=== PATIENT | female | born 1950 | race Caucasian/White ===

== ENCOUNTER 2021-12-04 03:48 | Inpatient (IN) | payer OTHER ==
--- OUTSIDE RECORDS SUMMARY | 2021-12-04 03:51 | XMS REPORT | Continuity of Care Document ---
:1950 Author Organization [facility] t Address [address] [place] [address] Care Team Providers Name Role Phone ARISTEO WOODARD Attending Clinician Unavailable Payers Payer Name Policy Type Policy Number Effective Date Expiration Date S ource MEDICARE PART A [id number] 2016 \T\ B 00:00:00 [employer] PPO I [id number] 2013 00:00:00 Problems This patient has no known problems. Allergies, Adverse Reactions, Alerts Allergy Allergy Status Severity Reaction(s) Onset Inactive Treating Comm ents Source Name Type Date Date Clinician codeine DA Active SV 2018-04 [facility] 05-06 [place] 00:00: d [address] [place] [address] CODEINE DRUG Active [facility]I 12-16 ity of 00:00: [address] Medications This patient has no known medications. Procedures This patient has no known procedures. Encounters Start End Encounter Admission Attending Care Care Encounter Source Date/Time Date/Time Type Type Clinicians Facility Department ID 2020-06-29 2020-06-29 Outpatient [facility] [id number] [facility] 14:50[facility]00 [facility]50[id number] 2020-06-29 Outpatient Keyon WOODARD [facility] [id number] [facility] 14:50:00 14:50:00 ARISTEO [facility] 2020-06-08 2020-06-08 Outpatient Keyon WOODARD [facility] [id number] Univers 13:00:00 13:00:[address] [facility] Results Test Description Test Time Test Comments Results Result Comments Source BASIC METABOLIC PANEL 2019-03-12 07:56:00 Test Item Value Reference Range Interpretation Comme nts SODIUM (test code = NA) 141 mmol/L 134-147 N POTASSIUM (test code = K) 3.8 mmol/L 3.4-5.0 N CHLORIDE (test code = CL) 110 mmol/L 100-108 H CARBON DIOXIDE (test code = CO2) 25 mmol/L 21-32 N ANION GAP (test code = GAP) 6.0 GAP calc 4.0-15.0 N GLUCOSE (test code = GLU) 95 MG/DL 70-110 N BLOOD UREA NITROGEN (test code = BUN) 15 MG/DL 7-18 N GLOMERULAR FILTRATION RATE (test code = GFR) >=60 max estimate estG FR >60 CREATININE (test code = CREAT) 0.7 MG/DL 0.6-1.0 N CALCIUM (test code = CA) 7.9 MG/DL 8.5-10.1 L CBC W/AUTO [id number] 07:47:00 Test Item Value Reference Range Interpretation Comments WHITE BLOOD CELL (test code = 7.3 K/mm3 3.5-11.0 N WBC) RED BLOOD CELL (test code = RBC) 3.65 M/mm3 4.70-6.10 L HEMOGLOBIN (test code = HGB) 9.8 G/DL 10.4-14.9 L HEMATOCRIT (test code = HCT) 30.5 % 31.5-44.1 L MEAN CELL VOLUME (test code = 83.6 Fl 84.5-98.6 L MCV) MEAN CELL HGB (test code = MCH) 26.8 pg 27.0-34.2 L MEAN CELL HGB CONCETRATION (test 32.1 G/DL 31.5-34.0 N code = MCHC) RED CELL DISTRIBUTION WIDTH (test 17.4 SD 11.5-14.5 H code = RDW) PLATELET COUNT (test code = PLT) 208.0 K/mm3 150-450 N MEAN PLATELET VOLUME (test code = 11.40 fL 7.0-10.5 H MPV) NEUTROPHIL % (test code = NT%) 66.0 % 40-76 N LYMPHOCYTE % (test code = LY%) 21.0 % 20.5-51.1 N MONOCYTE % (test code = MO%) 12.4 % 1.7-9.3 H EOSINOPHIL % (test code = EO%) 0.3 % 0.0-6.0 N BASOPHIL % (test code = BA%) 0.3 % 0.0-2.0 N NEUTROPHIL # (test code = NT#) 4.84 K/mm3 1.8-7.6 N LYMPHOCYTE # (test code = LY#) 1.5 K/mm3 0.6-3.2 N MONOCYTE # (test code = MO#) 0.9 K/mm3 0.3-1.1 N EOSINOPHIL # (test code = EO#) 0.0 K/mm3 0.0-0.4 N BASOPHIL # (test code = BA#) 0.0 K/mm3 0.0-0.1 N MANUAL DIFF REQUIRED (test code = NO DIFF/SCN CRITERIA MDIFF) - XR FLUOROSCOPY 0-60 [id number] 15:24:00 Name: TONI LI formerly [facility] : 1950 Age/S: 68 / F [id number] [facility] Council Unit #: [id number]: [place] [address] Phys: Bboby Yates MD Acct: [id number] Dis Date: Status: ADM INPHONE #: [phone] Exam Date: 03/11/2019 1230 FAX #: Reason: RIGHT FOOT TRIPLE ARTHRODESIS EXAMS:CPT: [id number] XR FLUOROSCOPY 0-60 MIN 18182 Fluoro Time: 112 SEC DAP (Gy m2): Air Kerma (mGy): EXAMINATION: - XR FLUOROSCOPY 0-60 MIN. LOCATION: S 17. HISTORY: RIGHT FOOT TRIPLE ARTHRODESIS. TECHNIQUE: Intraoperative fluoroscopy was utilized during surgery. Total reference air kerma was 4.22 mGy. FINDINGS/ IMPRESSION: Intraoperative fluoroscopy was utilized during right foot surgery. Please refer to operative report for detail. at [phone] Reported and signed by: Dhaval Goldstein M.D. CC: Bobby Yates MD; Fransico Vang MD PAGE 1 Signed Report Name: TONI LI formerly [facility] : 1950 Age/S: 68 / F [address] [address] Unit #: [id number] Loc: [place] [address] Phys: Bobby Yates MD Acct: [id number] Dis Date: Status: ADM IN PHONE #: [phone] Exam Date: 03/11/2019 1230 FAX #: Reason: RIGHT FOOT TRIPLE ARTHRODESIS EXAMS: CPT: [id number] XR FLUOROSCOPY 0-60 MIN 12626 Fluoro Time: 112 SEC DAP (Gy m2): Air Kerma (mGy): <Continued> Technologist: Melly Landon, RT(R) Trnscb Date/Time: 03/11/2019 (152) [email or web address] Orig Print D/T: S: 03/11/2019 ([id number]) PAGE 2 Signed ReportBASIC METABOLIC PANEL 2019-03-07 09:10:00 Test Item Value Reference Range Interpretation Comments SODIUM (test code = NA) 140 mmol/L 134-147 N POTASSIUM (test code = K) 3.8 mmol/L 3.4-5.0 N CHLORIDE (test code = CL) 108 mmol/L 100-108 N CARBON DIOXIDE (test code = CO2) 28 mmol/L 21-32 N ANION GAP (test code = GAP) 4.0 GAP calc 4.0-15.0 N GLUCOSE (test code = GLU) 95 MG/DL 70-110 N BLOOD UREA NITROGEN (test code = 23 MG/DL 7-18 H BUN) GLOMERULAR FILTRATION RATE (test 59 estGFR >60 L code = GFR) CREATININE (test code = CREAT) 1.0 MG/DL 0.6-1.0 N CALCIUM (test code = CA) 9.0 MG/DL 8.5-10.1 N VITAMIN D [id number] 09:10:00 Test Item Value Reference Range Interpretation Comments VITAMIN D 56.1 ng/mL 30.0-100.0 Vitamin D defic iency has 25-HYDROXY (test been define d by the code = VITD25) [facility] edicine and an Endocrine So ciety practice guidel ine as alevel of serum 25-OH vitamin D less than 20 ng/mL (1,2).The Endocrine Society went on to further define vitamin Dinsufficiency as a level between 21 and 29 ng/mL (2).1. IOM (Ins titute of Medicine). 2010 . Dietary reference intak es for calcium and D. [place]: [facility] [employer] .2. Reynold MF, Jennie HOPKINS, Javier corona [place], et al. Evaluation, treatment, and prevention of vitamin D de ficiency: an Endocrine So [facility] health care clinical practi ce guideline. JCEM . 2010; 96(7):1911-30.P erformed At: [facility] [id number] [place], [place] [id number] Gino Young MD Ph:[phone] BASIC METABOLIC [id number] 13:56:00 Test Item Value Reference Range Interpretation Comments SODIUM (test code = NA) 140 mmol/L 134-147 N POTASSIUM (test code = K) 3.8 mmol/L 3.4-5.0 N CHLORIDE (test code = CL) 108 mmol/L 100-108 N CARBON DIOXIDE (test code = CO2) 28 mmol/L 21-32 N ANION GAP (test code = GAP) 4.0 GAP calc 4.0-15.0 N GLUCOSE (test code = GLU) 95 MG/DL 70-110 N BLOOD UREA NITROGEN (test code = 23 MG/DL 7-18 H BUN) GLOMERULAR FILTRATION RATE (test 59 estGFR >60 L code = GFR) CREATININE (test code = CREAT) 1.0 MG/DL 0.6-1.0 N CALCIUM (test code = CA) 9.0 MG/DL 8.5-10.1 N VITAMIN D [id number] 13:56:00 Test Item Value Reference Range Interpretation Comments VITAMIN D 25-HYDROXY (test code = VITD25) BASIC METABOLIC [id number] 13:51:00 Test Item Value Reference Range Interpretation Comments SODIUM (test code = NA) 140 mmol/L 134-147 N POTASSIUM (test code = K) 3.8 mmol/L 3.4-5.0 N CHLORIDE (test code = CL) 108 mmol/L 100-108 N CARBON DIOXIDE (test code = CO2) 28 mmol/L 21-32 N ANION GAP (test code = GAP) 4.0 GAP calc 4.0-15.0 N GLUCOSE (test code = GLU) 95 MG/DL 70-110 N BLOOD UREA NITROGEN (test code = 23 MG/DL 7-18 H BUN) GLOMERULAR FILTRATION RATE (test estGFR >60 code = GFR) CREATININE (test code = CREAT) MG/DL 0.6-1.0 CALCIUM (test code = CA) 9.0 MG/DL 8.5-10.1 N VITAMIN D [id number] 13:51:00 Test Item Value Reference Range Interpretation Comments VITAMIN D 25-HYDROXY (test code = VITD25) CBC W/AUTO [id number] 13:42:00 Test Item Value Reference Range Interpretation Comments WHITE BLOOD CELL (test code = 5.4 K/mm3 3.5-11.0 N WBC) RED BLOOD CELL (test code = RBC) 4.63 M/mm3 4.70-6.10 L HEMOGLOBIN (test code = HGB) 12.1 G/DL 10.4-14.9 N HEMATOCRIT (test code = HCT) 39.2 % 31.5-44.1 N MEAN CELL VOLUME (test code = 84.7 Fl 84.5-98.6 N MCV) MEAN CELL HGB (test code = MCH) 26.1 pg 27.0-34.2 L MEAN CELL HGB CONCETRATION (test 30.9 G/DL 31.5-34.0 L code = MCHC) RED CELL DISTRIBUTION WIDTH (test 17.6 SD 11.5-14.5 H code = RDW) PLATELET COUNT (test code = PLT) 235.0 K/mm3 150-450 N MEAN PLATELET VOLUME (test code = 10.90 fL 7.0-10.5 H MPV) NEUTROPHIL % (test code = NT%) 56.2 % 40-76 N LYMPHOCYTE % (test code = LY%) 31.0 % 20.5-51.1 N MONOCYTE % (test code = MO%) 7.8 % 1.7-9.3 N EOSINOPHIL % (test code = EO%) 4.1 % 0.0-6.0 N BASOPHIL % (test code = BA%) 0.9 % 0.0-2.0 N NEUTROPHIL # (test code = NT#) 3.01 K/mm3 1.8-7.6 N LYMPHOCYTE # (test code = LY#) 1.7 K/mm3 0.6-3.2 N MONOCYTE # (test code = MO#) 0.4 K/mm3 0.3-1.1 N EOSINOPHIL # (test code = EO#) 0.2 K/mm3 0.0-0.4 N BASOPHIL # (test code = BA#) 0.1 K/mm3 0.0-0.1 N MANUAL DIFF REQUIRED (test code = NO DIFF/SCN CRITERIA MDIFF)
[2021-12-04] MEDS ORDERED: PANTOPRAZOLE 40 MG INJ ONE ×2 (04:59→05:00)
[2021-12-04] MEDS ORDERED: NA CHLORIDE 0.9% 250 ML ONE (04:59)
[2021-12-04] MEDS ORDERED: NA CHLORIDE 0.9% 1,000 ML ONE (05:01)
[2021-12-04 05:32] LABS: Hematocrit 30.4 % (36.0-45.0); Lymphocytes % 13.6 % (15.3-44.8); MCV 86.7 fL (80-100); MPV 9.1 fL (7.6-11.3); RBC Red Blood Cell Count 3.51 M/uL (3.86-4.86)
[2021-12-04 05:35] LABS: Protime INR 1.02
[2021-12-04 05:45] LABS: SARS-CoV-2 Antigen Rapid Res Negative (Negative)
[2021-12-04 05:59] LABS: ALT/SGPT 26 U/L (12-78); Albumin 2.9 g/dL (3.4-5.0); Alkaline Phosphatase 72 U/L (45-117); BUN Blood Urea Nitrogen 47 mg/dL (7-18); Bicarbonate 25 mmol/L (21-32); Bilirubin Total 0.4 mg/dL (0.2-1.0); Glomerular Filtration Rate 80 ml/min (=/>90); Glucose Level 127 mg/dL (74-106); Potassium 4.8 mmol/L (3.5-5.1); Protein, Total 5.6 g/dL (6.4-8.2); Sodium Level 140 mmol/L (136-145); Troponin High Sensitivity 11.9 pg/mL (<58.9)
[2021-12-04 06:00] LABS: AST/SGOT 21 U/L (15-37); Bilirubin Direct < 0.1 mg/dL (0-0.2); Magnesium 2.1 mg/dL (1.8-2.4)
--- NOTE | 2021-12-04 06:45 | ER ---
Nurse's Notes [facility] Name: Suma Mosqueda Age: 71 yrs Sex: Female : 1950 Arrival Date: 12/04/2021 Time: 03:53 Bed 5 Private MD: Diagnosis: GI Bleed/ Gastrointestinal hemorrhage, unspecified-upper;Anemia, unspecified;Acute gastritis with bleeding Presentation: 12/04 03:58 Chief complaint: Patient states: "I've had about 5 bleeds since last night. I have a as6 bleeding ulcer" pt reports having dark bloody stools. Coronavirus screen: At this time, the client does not indicate any symptoms associated with coronavirus-19. Ebola Screen: No symptoms or risks identified at this time. Initial Sepsis Screen: Does the patient meet any 2 criteria? No. Patient's initial sepsis screen is negative. Does the patient have a suspected source of infection? No. Patient's initial sepsis screen is negative. Risk Assessment: Do you want to hurt yourself or someone else? Patient reports no desire to harm self or others. Onset of symptoms was December 03, 2021. 03:58 Method Of Arrival: Wheelchair as6 03:58 Acuity: NITISH 3 as6 Historical: - Allergies: 04:09 Codeine; as6 - Home Meds: 04:05 amlodipine 10 mg tab 1 tab once daily [Active]; losartan 100 mg oral tab 1 tab once as6 daily [Active]; Nelson Thyroid 165 Oral once daily [Active]; pantoprazole 40 mg oral grps 1 packet once daily [Active]; - PMHx: 04:05 Hypothyroidism; Hypertensive disorder; as6 - PSHx: 04:05 Tonsillectomy; gastric bypass; knee; Ligation of fallopian tube; foot; as6 - Immunization history:: Client reports receiving the 2nd dose of the Covid vaccine, [facility]. - Social history:: Smoking status: Patient denies any tobacco usage or history of. Screenin:09 Abuse screen: Denies threats or abuse. Denies injuries from another. Nutritional as6 screening: No deficits noted. Tuberculosis screening: No symptoms or risk factors identified. Fall Risk None identified. Assessment: 04:09 General: Appears in no apparent distress. Behavior is calm, cooperative. Pain: Denies as6 pain. Neuro: Level of Consciousness is awake, alert, obeys commands, Oriented to person, place, time, situation. Respiratory: Respiratory effort is even, unlabored. GI: Reports bloody stool. 06:45 General: IV to right AC infiltrated in CT scan. IV discontinued . as6 07:29 Reassessment: Patient and/or family updated on plan of care and expected duration. Pain bm7 level reassessed. Patient is alert, oriented x 3, equal unlabored respirations, skin warm/dry/pink. Patient states feeling better. Patient states symptoms have improved. 08:07 Reassessment: Dr. Moses at bedside to reassess. bm7 08:34 Reassessment: Patient and/or family updated on plan of care and expected duration. Pain bm7 level reassessed. Patient is alert, oriented x 3, equal unlabored respirations, skin warm/dry/pink. Patient denies pain at this time. Vital Signs: 03:58 BP 118 / 66; Pulse 66; Resp 18 S; Temp 98.1(O); Pulse Ox 100% on R/A; Weight 81.65 kg as6 (R); Height 5 ft. 6 in. (167.64 cm) (R); Pain 0/10; 05:22 BP 121 / 60; Pulse 61; Resp 13 S; Pulse Ox 100% on R/A; as6 06:25 BP 96 / 44; Pulse 59; Resp 15 S; Pulse Ox 100% on R/A; as6 07:28 BP 110 / 57; Pulse 64; Resp 18; Pulse Ox 100% on R/A; Pain 0/10; bm7 08:34 BP 106 / 56; Pulse 66; Resp 16; Pulse Ox 100% on R/A; Pain 0/10; bm7 03:58 Body Mass Index 29.05 (81.65 kg, 167.64 cm) as6 ED Course: 03:53 Patient arrived in ED. bp1 03:57 Diego Abdalla, JASON is Primary Nurse. as6 04:05 Triage completed. as6 04:08 Arm band placed on. as6 04:09 Jonel Candelario MD is Attending Physician. mh7 04:09 Placed in gown. Bed in low position. Call light in reach. Side rails up X 1. Adult w/ as6 patient. Pulse ox on. NIBP on. Warm blanket given. 05:22 Inserted saline lock: 20 gauge in right antecubital area, using aseptic technique. as6 Blood collected. 05:22 PT-INR Sent. as6 05:22 Magnesium Sent. as6 05:22 LFT's Sent. as6 05:22 CBC with Diff Sent. as6 05:22 Basic Metabolic Panel Sent. as6 05:23 Type And Screen Sent. as6 05:23 SARS RAPID Sent. as6 05:44 XRAY Chest (1 view) In Process Unspecified. EDMS 06:35 Attending Physician role handed off by Jonel Candelario MD denisse 06:35 Magnus Moses MD is Attending Physician. denisse 06:42 Shalom Metzger MD is Hospitalizing Provider. denisse 06:44 Inserted saline lock: 20 gauge in left antecubital area, using aseptic technique. as6 06:56 CT Abd/Pelvis - IV Contrast Only In Process Unspecified. EDMS 07:16 Assisted to bedside commode. bm7 07:28 No apparent distress. Resting quietly. transfer approval from receiving facility. bm7 07:28 No provider procedures requiring assistance completed. Patient maintains SpO2 bm7 saturation greater than 95% on room air. 09:01 Report given to JASON Dennis. bm7 09:01 Patient admitted, IV remains in place. bm7 Administered Medications: 05:23 Drug: ProTONIX (pantoprazole) 80 mg Route: IVP; Site: right antecubital; as6 07:28 Follow up: Response: No adverse reaction bm7 05:23 Drug: ProTONIX (pantoprazole) 8 mg/hr Route: IV; Rate: 25 ml/hr; Site: right as6 antecubital; 09:02 Follow up: IV Status: Infusion continued upon admission; Infusion continued upon bm7 transfer 05:23 Drug: NS 0.9% 1000 ml Route: IV; Rate: 1000 ml; Site: right antecubital; as6 09:02 Follow up: IV Status: Completed infusion; IV Intake: 1000ml bm7 Medication: 07:28 VIS not applicable for this client. bm7 Intake: 09:02 IV: 1000ml; Total: 1000ml. bm7 Output: 07:32 Urine: 400ml (Voided); Total: 400ml. bm7 Outcome: 06:45 Decision to Hospitalize by Provider. denisse 09:01 Admitted to OR accompanied by nurse, family with patient, via stretcher, with chart, bm7 Report called to JASON Dennis 09:01 Condition: improved 09:01 Discharge instructions given to patient, Instructed on the need for transfer, Demonstrated understanding of instructions. 09:03 Patient left the ED. lou7 Signatures: Dispatcher [employer] EDMS Magnus Moses MD MD cha Paniauga, Brittany bp1 Holmes, Maurice, MD MD [facility] Lauren Saucedo, RN RN bm7 Diego Abdalla, JASON RN as6
--- NOTE | 2021-12-04 06:45 | EDPHYS ---
Physician Documentation [facility] Name: Suma Mosqueda Age: 71 yrs Sex: Female : 1950 Arrival Date: 12/04/2021 Time: 03:53 Bed 5 Private MD: MARY Physician Magnus Moses HPI: 12/04 04:50 This 71 yrs old Female presents to ER via Wheelchair with complaints of Shoulder Pain, mh7 Bleeding Ulcer. 04:50 The patient presents to the emergency department with rectal bleeding, a moderate mh7 amount, dark red blood with bowel movement with multiple such episodes, 5 times since symptom onset. Onset: The symptoms/episode began/occurred yesterday. Abdominal pain: none is appreciated. Modifying factors: The symptoms are alleviated by nothing, the symptoms are aggravated by nothing. Associated signs and symptoms: Pertinent positives: left shoulder pain, Pertinent negatives: anorexia, chest pain, constipation, diarrhea, dizziness at rest, dizziness when standing, fever, shortness of breath, syncope, near-syncope, vomiting. Severity of symptoms: At their worst the symptoms were moderate last night, in the emergency department the symptoms have improved moderately. The patient has experienced similar episodes in the past, several times. States that she stopped taking her Pantoprazole about 10 days ago.. Historical: - Allergies: 04:09 Codeine; as6 - Home Meds: 04:05 amlodipine 10 mg tab 1 tab once daily [Active]; losartan 100 mg oral tab 1 tab once as6 daily [Active]; [place] Thyroid 165 Oral once daily [Active]; pantoprazole 40 mg oral grps 1 packet once daily [Active]; - PMHx: 04:05 Hypothyroidism; Hypertensive disorder; as6 - PSHx: 04:05 Tonsillectomy; gastric bypass; knee; Ligation of fallopian tube; foot; as6 - Immunization history:: Client reports receiving the 2nd dose of the Covid vaccine, pfizer. - Social history:: Smoking status: Patient denies any tobacco usage or history of. ROS: 04:50 Constitutional: Negative for fever, chills, and weight loss, Eyes: Negative for injury, mh7 pain, redness, and discharge, ENT: Negative for injury, pain, and discharge, Neck: Negative for injury, pain, and swelling, Cardiovascular: Negative for chest pain, palpitations, and edema, Respiratory: Negative for shortness of breath, cough, wheezing, and pleuritic chest pain, Abdomen/GI: Negative for abdominal pain, nausea, vomiting, diarrhea, and constipation, Back: Negative for injury and pain, : Negative for injury, bleeding, discharge, and swelling, Skin: Negative for injury, rash, and discoloration, Neuro: Negative for headache, weakness, numbness, tingling, and seizure, Psych: Negative for depression, anxiety, suicide ideation, homicidal ideation, and hallucinations, Allergy/Immunology: Negative for hives, rash, and allergies, Endocrine: Negative for neck swelling, polydipsia, polyuria, polyphagia, and marked weight changes, Hematologic/Lymphatic: Negative for swollen nodes, abnormal bleeding, and unusual bruising. Exam: 04:50 Constitutional: This is a well developed, well nourished patient who is awake, alert, mh7 and in no acute distress. Head/Face: Normocephalic, atraumatic. Eyes: Pupils equal round and reactive to light, extra-ocular motions intact. Lids and lashes normal. Conjunctiva and sclera are non-icteric and not injected. Cornea within normal limits. Periorbital areas with no swelling, redness, or edema. Neck: Trachea midline, no thyromegaly or masses palpated, and no cervical lymphadenopathy. Supple, full range of motion without nuchal rigidity, or vertebral point tenderness. No Meningismus. Chest/axilla: Normal chest wall appearance and motion. Nontender with no deformity. No lesions are appreciated. Cardiovascular: Regular rate and rhythm with a normal S1 and S2. No gallops, murmurs, or rubs. Normal PMI, no JVD. No pulse deficits. Respiratory: Lungs have equal breath sounds bilaterally, clear to auscultation and percussion. No rales, rhonchi or wheezes noted. No increased work of breathing, no retractions or nasal flaring. Abdomen/GI: Soft, non-tender, with normal bowel sounds. No distension or tympany. No guarding or rebound. No evidence of tenderness throughout. 04:50 Back: No spinal tenderness. No costovertebral tenderness. Full range of motion. Skin: Warm, dry with normal turgor. Normal color with no rashes, no lesions, and no evidence of cellulitis. MS/ Extremity: Pulses equal, no cyanosis. Neurovascular intact. Full, normal range of motion. Neuro: Awake and alert, GCS 15, oriented to person, place, time, and situation. Cranial nerves II-XII grossly intact. Motor strength 5/5 in all extremities. Sensory grossly intact. Cerebellar exam normal. Normal gait. Psych: Awake, alert, with orientation to person, place and time. Behavior, mood, and affect are within normal limits. 04:50 Abdomen/GI: Rectal exam: rectal tone normal, Stool: guaiac positive, maroon, hemorrhoid(s), are not appreciated, mass, is not appreciated, swelling, is not appreciated, tenderness, is not appreciated, fecal impaction, is not appreciated, the exam is chaperoned by the nurse. 06:36 Abdomen/GI: Rectal exam: Stool: denisse 07:25 ECG was reviewed by the Attending Physician. [facility] Vital Signs: 03:58 BP 118 / 66; Pulse 66; Resp 18 S; Temp 98.1(O); Pulse Ox 100% on R/A; Weight 81.65 kg as6 (R); Height 5 ft. 6 in. (167.64 cm) (R); Pain 0/10; 05:22 BP 121 / 60; Pulse 61; Resp 13 S; Pulse Ox 100% on R/A; as6 06:25 BP 96 / 44; Pulse 59; Resp 15 S; Pulse Ox 100% on R/A; as6 07:28 BP 110 / 57; Pulse 64; Resp 18; Pulse Ox 100% on R/A; Pain 0/10; bm7 08:34 BP 106 / 56; Pulse 66; Resp 16; Pulse Ox 100% on R/A; Pain 0/10; bm7 03:58 Body Mass Index 29.05 (81.65 kg, 167.64 cm) as6 MDM: 06:16 Transition of care: After a detail discussion of the patient's case, care is 7 transferred to Magnus Moses MD. 06:35 Patient medically screened. [facility] 07:23 Differential diagnosis: gastritis, diverticulitis, hemorrhagic shock. Data reviewed: [facility] vital signs, nurses notes, lab test result(s), EKG, radiologic studies, CT scan, plain films. Data interpreted: quality assurance monitor: rate is 59 beats/min, rhythm is regular, Pulse oximetry: on room air is 100 %. Test interpretation: by ED physician or midlevel provider: ECG, plain radiologic studies. Counseling: I had a detailed discussion with the patient and/or guardian regarding: the historical points, exam findings, and any diagnostic results supporting the discharge/admit diagnosis, lab results, radiology results, the need for further work-up and treatment in the hospital. 12/04 04:47 Order name: Basic Metabolic Panel; Complete Time: 06:11 7 12/04 04:47 Order name: CBC with Diff; Complete Time: 05:35 7 12/04 04:47 Order name: LFT's; Complete Time: 06:11 7 12/04 04:47 Order name: Magnesium; Complete Time: 06:11 7 12/04 04:47 Order name: PT-INR; Complete Time: 05:37 7 12/04 04:47 Order name: Troponin HS; Complete Time: 06:11 7 12/04 04:48 Order name: Type And Screen; Complete Time: 06:11 7 12/04 04:49 Order name: SARS RAPID; Complete Time: 05:47 7 12/04 07:28 Order name: Urine Dipstick-Ancillary EDMS 12/04 08:11 Order name: Urinalysis EDMS 12/04 08:11 Order name: Basic Metabolic Panel EDMS 12/04 08:11 Order name: Basic Metabolic Panel EDMS 12/04 08:11 Order name: CBC with Automated Diff EDMS 12/04 08:11 Order name: CBC with Automated Diff EDMS 12/04 04:47 Order name: XRAY Chest (1 view) [facility] 12/04 04:47 Order name: EKG; Complete Time: 04:53 7 12/04 04:47 Order name: Cardiac monitoring; Complete Time: 05:23 7 12/04 04:47 Order name: EKG - Nurse/Tech; Complete Time: 05:23 7 12/04 04:47 Order name: IV Saline Lock; Complete Time: 05:23 7 12/04 04:47 Order name: Labs collected and sent; Complete Time: 05:23 7 12/04 04:47 Order name: O2 Per Protocol; Complete Time: 05:23 7 12/04 04:47 Order name: O2 Sat Monitoring; Complete Time: 05:22 7 12/04 06:12 Order name: CT Abd/Pelvis - IV Contrast Only [facility] 12/04 08:11 Order name: Protime (+INR) [facility] 12/04 08:11 Order name: Protime (+INR) [facility] 12/04 08:13 Order name: Clear Liquid; Complete Time: 08:35 [facility] 12/04 06:11 Order name: Urine Dipstick-Ancillary (obtain specimen); Complete Time: 07:16 [facility] 12/04 06:39 Order name: IV Saline Lock - Large Bore; Complete Time: 06:44 denisse EC:25 Rate is 56 beats/min. Rhythm is regular. QRS [place] is Normal. [place] interval is normal. QRS denisse interval is normal. QT interval is normal. No Q waves. T waves are Normal. No ST changes noted. Clinical impression: NSR w/ Non-specific ST/T Changes, LVH, and No evidence of ischemia. Interpreted by me. Reviewed by me. Administered Medications: 05:23 Drug: ProTONIX (pantoprazole) 80 mg Route: IVP; Site: right antecubital; as6 07:28 Follow up: Response: No adverse reaction [facility] 05:23 Drug: ProTONIX (pantoprazole) 8 mg/hr Route: IV; Rate: 25 ml/hr; Site: right as6 antecubital; 09:02 Follow up: IV Status: Infusion continued upon admission; Infusion continued upon [facility] transfer 05:23 Drug: NS 0.9% 1000 ml Route: IV; Rate: 1000 ml; Site: right antecubital; as6 09:02 Follow up: IV Status: Completed infusion; IV Intake: 1000ml 7 Disposition Summary: 12/04/21 06:45 Hospitalization Ordered Hospitalization Status: Inpatient Admission denisse Provider: Shalom Metzger cha Location: Intensive Care Unit denisse Condition: Fair denisse Problem: new denisse Symptoms: have improved denisse Bed/Room Type: Standard denisse Room Assignment: denisse Diagnosis - GI Bleed/ Gastrointestinal hemorrhage, unspecified - upper denisse - Anemia, unspecified denisse - Acute gastritis with bleeding denisse Forms: - Medication Reconciliation Form denisse - SBAR form denisse Signatures: Dispatcher [employer] EDMagnus Smith MD MD cha Holmes, Maurice, MD MD 7 Diego Abdalla RN RN as6 Hailey Farooq PA PA sb3 Lauren Saucedo RN bm7 Corrections: (The following items were deleted from the chart) 08:11 08:11 [facility] ordered. EDMS EDMS
--- NOTE | 2021-12-04 07:26 | RAD REPORT ---
EXAM DESCRIPTION: CT - Abdomen Pelvis W Contrast - 12/04/2021 6:54 am CLINICAL HISTORY: Abdominal pain / GI bleed COMPARISON: none. TECHNIQUE: Computed axial tomography of the abdomen pelvis was obtained. 100 cc Isovue-300 was admin istered intravenously. Oral contrast was not requested which limits evaluation of bowel and appendix All CT scans are performed using dose optimization technique as appropriate and may include automated exposure control or mA/KV adjustment according to patient size. FINDINGS: The liver, spleen, and pancreas appear unremarkable. Small right renal cyst. 4 centimeter low-density structure left renal pelvis. Small left renal cyst is present. 17 millimeter left adrenal mass. Gastric bypass. Gastric wall appears thickened. There is no evidence of diverticulitis. Normal appendix. Uterine masses probably fibroids. Cholecystectomy. Prominent common bile duct IMPRESSION: Gastric wall appears thickened which be secondary to incomplete distention or inflammati on Gastric bypass Prominent common bile duct may be a normal finding in this patient status post cholecystectomy. Patho logy can also result in this appearance and should be correlated clinically with appropriate lab valu es. A 4 centimeter low-density structure left renal pelvis probably parapelvic cyst. Combination of extra renal pelvis and mild hydronephrosis is another consideration. 17 millimeter left adrenal mass could represent an adenoma or metastasis. MRI can often help distingu henry between the two
[2021-12-04 07:28] LABS: Urine Blood Trace-lysed (Negative); Urine Glucose Negative (Negative); Urine Protein Negative (Negative); Urine Specific Gravity 1.015 (1.005-1.030); Urine pH 5.5 (5.0-7.0)
[2021-12-04] MEDS ORDERED: ACETAMINOPHEN 500 MG TAB PO PRN (08:06)
[2021-12-04] MEDS ORDERED: ONDANSETRON 4 MG/2 ML VIAL IV PRN (08:06)
[2021-12-04] MEDS ORDERED: HYDROCODONE/APAP 5/325 MG TAB PO PRN (08:12)
[2021-12-04] MEDS ORDERED: SODIUM CHLORIDE 0.9% 10ML INJ IV PRN (08:13)
[2021-12-04] MEDS: PANTOPRAZOLE 40 MG INJ IVP SCH ×2 (09:00→20:46)
[2021-12-04] MEDS ORDERED: SIMETHICONE 40 MG/ 0.6 ML ONE (09:01)
[2021-12-04] MEDS ORDERED: Ringers Lactate 1,000 ML IV ONE (09:15)
[2021-12-04] MEDS ORDERED: LIDOCAINE 1% MPF 5 ML VIAL ONE (09:39)
[2021-12-04] MEDS ORDERED: propofoL 200 MG/20 ML VIAL IV ONE (09:39)
--- NOTE | 2021-12-04 09:57 | P.HP ---
Certification for Inpatient Patient admitted to: Inpatient With expected LOS: >2 Midnights Patient will require the following post-hospital care: None Practitioner: I am a practitioner with admitting privileges, knowledge of patient current condition, hospital course, and medical plan of care. Services: Services provided to patient in accordance with Admission requirements found in Title 42 Section 412.3 of the Code of Federal Regulations Patient History Date of Service: 12/04/21 Reason for admission: GI bleed History of Present Illness: Patient is a 71-year-old female with a past medical history significant for hypertension, hypothyroidism, fibromyalgia, anemia, GERD, gastric ulcers who presents with complaint of GI bleed yesterday. Patient reported multiple episodes of dark stools. She also complains of left shoulder pain as 4/10 and described as aching quality. Associated signs and symptoms of dizziness fatigue and weakness. Patient denies any other signs and symptoms. Symptoms are aggravated or relieved by nothing. Patient decided to present to the hospital due to worsening symptoms. Of note, patient reported that she has not been taking her Protonix in the last 10 days. Allergies codeine Adverse Reaction (Mild, Verified 04/18/15 17:56) Rash Home medications list reviewed: Yes Home Medications: Amlodipine [Norvasc*] 10 mg PO DAILY 04/18/15 Losartan Potassium 100 mg PO DAILY 04/18/15 Metoprolol Tartrate [Lopressor*] 50 mg PO DAILY 04/18/15 Pantoprazole Sodium 40 mg PO DAILY 12/04/21 Thyroid Tab [[place] Thyroid] 120 mg PO DAILY 12/04/21 Thyroid,Pork [[place] Thyroid] 45 mg PO DAILY 12/04/21 Turmeric/Turmeric Ext/Pepr Ext [[facility] Turmeric Curcumin 1,000 mg] 20,000 mg PO DAILY 12/04/21 - Past Medical/Surgical History Diabetic: No -: HTN -: Fibromyalgia -: N/V -: gastric bypass -: kristen -: carpal tunnel (bilat) -: knee replacements(bilat) -: tonsillectomy -: tubal - Family History Family History: Reviewed- Non-Contributory - Social History Smoking Status: Never smoker Alcohol use: No CD- Drugs: No Caffeine use: Yes Place of Residence: Home Review of Systems General: Weakness, Other (fatigue) Eyes: Unremarkable ENT: Unremarkable Respiratory: Unremarkable Cardiovascular: Unremarkable Gastrointestinal: Unremarkable Genitourinary: Unremarkable Musculoskeletal: Shoulder Pain Integumentary: Unremarkable Neurological: Unremarkable Physical Examination - Vital Signs Temperature: 98.1 F Blood Pressure: 121/60 Pulse: 61 Respirations: 13 - Physical Exam General: Alert, In no apparent distress, Oriented x3 HEENT: Atraumatic, Normocephalic, PERRLA Neck: Supple, 2+ carotid pulse no bruit, JVD not distended Respiratory: Clear to auscultation bilaterally, Normal air movement Cardiovascular: No edema, Normal pulses, Regular rate/rhythm, Normal S1 S2 Capillary refill: <2 Seconds Gastrointestinal: Normal bowel sounds Musculoskeletal: No clubbing, No swelling, No contractures, No erythema, No tenderness, No warmth Integumentary: No rashes, No breakdown, No tenderness/swelling, No erythema Neurological: Normal gait, Normal speech, Normal strength at 5/5 x4 extr Lymphatics: No axilla or inguinal lymphadenopathy - Studies Laboratory Data (last 24 hrs) 12/04/21 05:16: PT 11.2, INR 1.02 12/04/21 05:16: WBC 7.4, Hgb 10.5 L, Hct 30.4 L, Plt Count 173 12/04/21 05:16: Sodium 140, Potassium 4.8, BUN 47 H, Creatinine 0.79, Glucose 127 H, Magnesium 2.1, Total Bilirubin 0.4, AST 21, ALT 26, Alkaline Phosphatase 72 Assessment and Plan - Plan --Gastrointestinal bleeding. Gastroenterology consulted. Patient placed on Protonix. H&H stable. We will continue to monitor hemoglobin and transfuse if less than 7.0. --History of Gastric ulcers. Continue Protonix. -- Hypertension. Stable. Continue home medications. --GERD. Continue Protonix. --CKD 2. Stable. We will continue to monitor renal functions. --UTI POA. Patient placed on antibiotics. Urine cultures pending. --Fibromyalgia. We will manage pain with current pain medication regimen. --Placement. Continue home medication. -- Symptomatic anemia. H&H stable. We will continue to monitor hemoglobin and transfuse if less than 7.0. --Left shoulder pain. Patient currently denies any pain continue supportive care --DVT prophylaxis with SCDs. Discharge Plan: Home Plan to discharge in: 48 Hours - Advance Directives Does patient have a Living Will: No Does patient have a Durable POA for Healthcare: No - Code Status/Comfort Care Code Status Assessed: Yes Code Status: Full Code Physician Review: Patient Assessed, Agree with Above Assessment and Plan Critical Care: No
--- NOTE | 2021-12-04 10:36 | ENDO RPT ---
[address], [id number] EGD PROCEDURE REPORT EXAM DATE: 12/04/2021 PATIENT NAME: Suma Mosqueda MR#: [id number] BIRTHDATE: 1950 ATTENDING: Cecilio Wallace Dr STATUS: inpatient MILLER FIRST: Katie YATES and Shireen Escamilla CST INDICATIONS: The patient is a 71 yr old Female here for an EGD due to melenic bleeding, anemia, and control bleeding PROCEDURE PERFORMED: EGD with biopsy and EGD for control of bleeding and EGD with injection of Epinephrine MEDICATIONS: Per Anesthesia. TOPICAL ANESTHETIC: none CONSENT: The patient understands the risks and benefits of the procedure and understands that these risks include, but are not limited to: sedation, allergic reaction, infection, perforation and/or bleeding. Alternative means of evaluation and treatment include, among others: physical exam, x-rays, and/or surgical intervention. The patient elects to proceed with this endoscopic procedure. DESCRIPTION OF PROCEDURE: During intra-op preparation period all mechanical medical equipment was checked for proper function. Hand hygiene and appropriate measures for infection prevention was taken. Procedure, possible complications, and alternatives including but not limited to the possibility of bleeding, perforation, tear, infection, sepsis, need for surgery, need for blood transfusion, and anesthesia related complications were explained to the patient. After the risks, benefits and alternatives of the procedure were thoroughly explained, Informed consent was verified, confirmed and timeout was successfully executed by the treatment team. The patient was placed in the left lateral position. The patient was anesthetized with topical anesthesia. Through the anesthetized oropharyngeal area, the scope was passed without any difficulty. The [id number] ([id number]) endoscope was introduced through the mouth and advanced to the proximal jejunum. Retroflexion was not performed. The gastroscope was then slowly withdrawn and removed. A small hiatal hernia was found Anastomosis was noted in the fundus. Multiple ulcers were found in the fundus, s/p injection of 2 cc Epinephrine 1:10,000 with control of bleeding. Gastric biposy obtained and sent to pathology. Gastric bypass surgical changes noted. ADVERSE EVENTS: There were no complications. IMPRESSIONS: 1. Small hiatal hernia 2. Gastro-jejununal anastomosis in the fundus (history of gastric bypass surgery) 3. Multiple (2, larger one with minor bleeding after abrasion with endoscope) 9 control of bleeding 4. Gastric biopsy obtained 5. Gastric bypass surgical changes RECOMMENDATIONS: 1. await biopsy results 2. acid suppression therapy 3. check gastrin level REPEAT EXAM: Cecilio Wallace Dr eSigned: Cecilio Wallace Dr 12/04/2021 10:35 AM cc: Fransico Vang CPT CODES: ICD9 CODES: PATIENT NAME: Suma MosquedaSanta MR#: [id number]
[2021-12-04] MEDS ORDERED: EPINEPHRINE/PF 1 MG/ML AMP ONE (10:38)
[2021-12-04 10:58] VITALS: O2SAT 99
[2021-12-04 11:56] VITALS: BMI 29.0
--- NOTE | 2021-12-04 14:18 | CON ---
Date of Consultation: 12/04/2021 Reason For Consultation: Melena with anemia with hemoglobin of 10.5. History Of Present Illness: The patient is a 71-year-old white female with history of bleeding pepti c ulcer disease with melena approximately 5 years ago with ulcer found at the gastric bypass anastomo sis. The patient was told to stay on PPI therapy for life time. However, the patient decided to sto p PPI medicines prior 2 weeks ago to try some natural remedies and now has recurrent melena. The pat ient states that she had a gastric bypass surgery approximately 15 years ago and had EGD due to melen a approximately 5 years ago with ulcer found at the anastomosis. Currently, her hemoglobin is 10.5, hemodynamically stable in the emergency room. The patient denies any hematemesis, coffee-ground emes is, nausea, vomiting, abdominal pain, fevers, chills, night sweats, change in bowel habits, diarrhea, constipation, black stool, or hematochezia. Past Medical History: Significant for peptic ulcer disease and gastric bypass anastomosis sukumar bonner 5 years ago, was also seen and told to stay on Protonix chronically for the rest of her life; hyp ertension; fibromyalgia; recurrent nausea and vomiting; cholecystectomy; carpal tunnel surgery; knee replacements bilaterally; tonsillectomy; tubal ligation. Medications: Include Norvasc, losartan, Lopressor, , Feosol, pantoprazole. Allergies: CODEINE. Social History: She is , 4 children. No tobacco. No alcohol. Family History: Father of COVID-19. Mother of autoimmune liver disease. Sister of a utoimmune liver disease as well. Physical Examination: Vital Signs: The patient is 5 feet 6 inches, 180 pounds, BMI of 29.1 kg/m2. Temperature 98 degrees Fahrenheit, pulse 75, respirations 16, blood pressure 114/48, O2 of 100%. General: She is an elderly female, lying in bed, in no acute distress. HEENT: Normocephalic, atraumatic. Anicteric. Pupils equal, round, and reactive to light. Extraocu lar movements intact. Oropharynx clear. Throat clear. Neck: Supple. No masses. Respirations: Clear to auscultation bilaterally. Cardiac: Regular rate and rhythm. Gastrointestinal: Positive bowel sounds. Soft, nontender, nondistended. No hepatosplenomegaly. Extremities: No clubbing, cyanosis, or edema. Neuro: Alert and oriented x3. Grossly nonfocal. 5/5 motor strength to light touch. Laboratory Data: The patient has a white count of 7.4, hemoglobin 10.5, hematocrit 30.4, MCV of 87, platelet count of 173, polys of 82%, lymphocytes 14%, monocytes 4%. PT 11.2, INR of 1.02. The patie nt's sodium 140, potassium 4.8, chloride 111, bicarb 25, BUN 47, creatinine of 0.8, glucose 127, calc ium 8.9, magnesium 2.1, total bilirubin 0.4, direct bilirubin less than 0.1, AST of 21, ALT of 26, al kaline phosphatase 72. Troponin I of 11.9, normal. Total protein is 5.6, albumin 2.9, globulin 2.7. The patient's UA shows 1+ ketones, trace blood, and 1+ leukocyte esterase. Serology; COVID-19 test ing was negative. Imaging: CT abdomen and pelvis revealed distended gallbladder, 4 cm low-density s tructure in the pelvis, small renal cysts are present, 1.7 cm left renal mass, gastric bypass changes present, gastric wall appears thickened. Impression: 1.Gastrointestinal bleeding, melena of 2 days with anemia of hemoglobin 10.5, off Protonix medicine which she has been on chronically since EGD 5 years ago revealed bleeding peptic ulcer disease at gas tric bypass anastomosis. The patient was told to stay on medicines the rest of her life; however, sh e stopped 2 weeks ago to try a natural alternative. 2.History of gastric bypass, hypertension, and other as per above. Also history of bleeding peptic ulcer disease probably 5 years ago resolved with PPI therapy. Recommendations: 1.IV fluid resuscitation. 2.Agree with IV Protonix drip. 3.Serial H and H, and transfuse p.r.n. 4.EGD urgently. JULIETA/MARLON Voice ID: [id number] Report ID: [id number]
[2021-12-04 20:10] LABS: Hematocrit 27.7 % (36.0-45.0); MCV 86.1 fL (80-100); MPV 8.8 fL (7.6-11.3); RBC Red Blood Cell Count 3.22 M/uL (3.86-4.86)
[2021-12-05 04:05] LABS: Protime INR 1.01
[2021-12-05 04:06] LABS: Absolute Lymphocytes (CBC) 1.7 K/uL (0.7-4.9); Hematocrit 27.6 % (36.0-45.0); Lymphocytes % 28.5 % (15.3-44.8); MCV 86.4 fL (80-100); MPV 8.9 fL (7.6-11.3)
[2021-12-05 04:21] LABS: Potassium 4.1 mmol/L (3.5-5.1)
--- NOTE | 2021-12-05 08:55 | P.DS ---
Admission Date: 12/04/21 Discharge Date: 12/05/21 Disposition: ROUTINE DISCHARGE Discharge Condition: GOOD Reason for Admission: GI bleed Consultations: GI - Dr. Wallace Brief History of Present Illness: 71yo F, PMH: h/o gastric bypass, hypertension, hypothyroidism, fibromyalgia, anemia, GERD, gastric ulcers Presents to ED due to dark stools / concern for ulcer bleed. Patient reported multiple episodes of dark stools. She also complains of left shoulder pain as 4/10 and described as aching quality. Associated signs and symptoms of dizziness fatigue and weakness. Patient denies any other signs and symptoms. Symptoms are aggravated or relieved by nothing. Patient decided to present to the hospital due to worsening symptoms. Of note, patient reported that she has not been taking her Protonix in the last 10 days. Hospital Course: Problem List: GI bleed, gastric ulcers h/o gastric ulcers h/o gastric bypass HTN CKDII Fibromyalgia Patient was treated with IV pantoprazole and bowel rest. GI, Dr. Wallace was consulted and patient underwent EGD. On EGD, a few ulcers were seen, with one having some minimal bleeding. The bleeding was stopped and biopsies were obtained. Patient's diet was advanced and her symptoms improved. She is deemed stable for discharge home. Prescribed pantoprazole 40mg twice daily x1 month, then decrease to once a day after that, if symptoms are controlled. Discuss with GI doctor about possibility of slowly weaning pantoprazole in the future, which may be difficult given ulcer / surgery history. Follow up with PCP within ~1 week. Vital Signs/Physical Exam: Temp Pulse Resp BP Pulse Ox 98.3 F 58 18 125/58 L 99 12/05/21 04:00 12/05/21 04:00 12/05/21 04:00 12/05/21 04:00 12/05/21 04:00 General: Alert, In no apparent distress, Oriented x3 HEENT: PERRLA, EOMI Respiratory: Clear to auscultation bilaterally, Normal air movement Cardiovascular: No edema, Regular rate/rhythm Gastrointestinal: Soft and benign, Non-distended, Tenderness (minimal epigastric) Musculoskeletal: No contractures, No tenderness Integumentary: No rashes, No significant lesion Neurological: Normal speech, Normal strength at 5/5 x4 extr, Normal affect Laboratory Data at Discharge: WBC 6.1 K/uL (4.3-10.9) 12/05/21 03:23 Hgb 9.4 g/dL (12.0-15.0) L 12/05/21 03:23 Hct 27.6 % (36.0-45.0) L 12/05/21 03:23 Plt Count 178 K/uL (152-406) 12/05/21 03:23 PT 11.1 SECONDS (9.5-12.5) 12/05/21 03:23 INR 1.01 12/05/21 03:23 Sodium 139 mmol/L (136-145) 12/05/21 03:23 Potassium 4.1 mmol/L (3.5-5.1) 12/05/21 03:23 BUN 30 mg/dL (7-18) H 12/05/21 03:23 Creatinine 0.81 mg/dL (0.55-1.3) 12/05/21 03:23 Glucose 95 mg/dL (74-106) 12/05/21 03:23 Magnesium 2.1 mg/dL (1.8-2.4) 12/04/21 05:16 Total Bilirubin 0.4 mg/dL (0.2-1.0) 12/04/21 05:16 AST 21 U/L (15-37) 12/04/21 05:16 ALT 26 U/L (12-78) 12/04/21 05:16 Alkaline Phosphatase 72 U/L (45-117) 12/04/21 05:16 Home Medications: Amlodipine [Norvasc*] 10 mg PO DAILY 04/18/15 Losartan Potassium 100 mg PO DAILY 04/18/15 Metoprolol Tartrate [Lopressor*] 50 mg PO DAILY 04/18/15 Thyroid Tab [Bee Thyroid*] 120 mg PO DAILY 12/04/21 Thyroid,Pork [Bee Thyroid] 45 mg PO DAILY 12/04/21 Turmeric/Turmeric Ext/Pepr Ext [Cvs Turmeric Curcumin 1,000 mg] 20,000 mg PO DAILY 12/04/21 Pantoprazole [Protonix Tab*] 40 mg PO BID 30 Days #60 tab 12/05/21 New Medications: Pantoprazole [Protonix Tab*] 40 mg PO BID 30 Days #60 tab Physician Discharge Instructions: Patient was treated with IV pantoprazole and bowel rest. GI, Dr. Wallace was consulted and patient underwent EGD. On EGD, a few ulcers were seen, with one having some minimal bleeding. The bleeding was stopped and biopsies were obtained. Patient's diet was advanced and her symptoms improved. Hemoglobin was stable at 9.4. She is deemed stable for discharge home. Prescribed pantoprazole 40mg twice daily x1 month, then decrease to once a day after that, if symptoms are controlled. Discuss with GI doctor about possibility of slowly weaning pantoprazole in the future, which may be difficult given ulcer / surgery history. Follow up with PCP within ~1 week. Diet: [place] Activity: Ad georgi Followup: Fransico Vang MD [Primary Care Provider] - 1 Week (PCP- call to schedule an appointment ) Time spent managing pt's care (in minutes): 45
[2021-12-05] MEDS ORDERED: TURMERIC EXT PO SCH (09:00)
[2021-12-05] MEDS ORDERED: TURMERIC PO SCH (09:00)
[2021-12-05] MEDS ORDERED: PEPR EXT PO SCH (09:00)
[2021-12-05] MEDS ORDERED: AMLODIPINE 10 MG TAB PO SCH (09:00)
[2021-12-05] MEDS ORDERED: METOPROLOL TAR 50 MG TAB PO SCH (09:00)
[2021-12-05] MEDS ORDERED: LOSARTAN POTASSIUM 50 MG TABLET PO SCH (09:00)
[2021-12-05] MEDS ORDERED: [UNRECOGNIZED DRUG - OTHER] PO SCH (09:00)
[2021-12-05] MEDS ORDERED: THYROID 30 MG TAB PO SCH (09:00)
[2021-12-05 09:15] VITALS: BP 127/62; TEMP 97.9
[2021-12-05] MEDS: PANTOPRAZOLE 40 MG INJ IVP SCH (09:15)
--- NOTE | 2021-12-05 10:01 | RAD REPORT ---
EXAM DESCRIPTION: RAD - Chest Single View - 12/04/2021 5:42 am CLINICAL HISTORY: 71 years Female, GI Bleeding COMPARISON: None. TECHNIQUE: Single portable x-ray view of the chest performed on 12/04/2021 at 5:37 AM FINDINGS: The lungs are well expanded and are clear. There is no evidence of a pneumothorax. The cardiac silhouette is normal in size and configuration. The mediastinal contours are normal. No acute osseous abnormality is identified. No acute soft tissue abnormalities are seen. Lines and tubes: There are multiple overlying cardiac/vascular sonographer leads. Free air: None IMPRESSION: No evidence of acute intrathoracic disease. Electronically signed by: Kathy Warner DO 12/04/2021 6:35 AM CDT Due to temporary technical issues with the PACS/Fluency reporting system, reports are being signed by the in house radiologists without review as a courtesy to insure prompt reporting. The interpreting radiologist is fully responsible for the content of the report.
--- NOTE | 2021-12-05 13:47 | EKG ---
Test Date: 2021-12-04 Test Time: 05:07:49 Telecommunications Support: MEASUREMENT RESULTS: Intervals: Rate: 56 MI: 160 QRSD: 102 QT: 424 QTc: 409 [place]: P: 33 MI: 160 QRS: -23 T: 21 INTERPRETIVE STATEMENTS: Sinus bradycardia Incomplete right bundle branch block Moderate voltage criteria for LVH, may be normal variant Borderline ECG Compared to ECG 12/26/2001 09:27:00 Incomplete right bundle-branch block now present Electronically Signed On 12-05-21 13:43:59 CDT by Niall Kennedy
== END 2021-12-05 10:40 | disposition home or self-care (01) | DRG 378 ==
LOC: ER 03:48 → ERHOLD 08:04 → 2ND 11:01
PROVIDERS: ADMIT Hospitalist; ATTEND Hospitalist
PROC: 0W3P8ZZ Control Bleeding in Gastrointestinal Tract, Via Natural or Artificial Opening Endoscopic (ICD-10-PCS; 2021-12-04)
PROC: 0DB68ZX Excision of Stomach, Via Natural or Artificial Opening Endoscopic, Diagnostic (ICD-10-PCS; principal; 2021-12-04 09:30)
DX: K25.0 Acute gastric ulcer with hemorrhage (principal); N39.0 Urinary tract infection, site not specified; M79.7 Fibromyalgia; K21.9 Gastro-esophageal reflux disease without esophagitis; K44.9 Diaphragmatic hernia without obstruction or gangrene; E03.9 Hypothyroidism, unspecified; I12.9 Hypertensive chronic kidney disease with stage 1 through stage 4 chronic kidney disease, or unspecified chronic kidney disease; N18.2 Chronic kidney disease, stage 2 (mild); D64.9 Anemia, unspecified; M25.512 Pain in left shoulder; Z96.653 Presence of artificial knee joint, bilateral; Z98.84 Bariatric surgery status; Z20.822 Contact with and (suspected) exposure to COVID-19
CPT/HCPCS: 36415; 71045; 74177; 80048; 80076; 81003; 83735; 84484; 85025; 85027; 85610; 86850; 86900; 86901; 87811; 88305; 88312; 93005; 96365; 96366; 99285; C9113; J0171; J2704; J7030; J7050; J7120; Q9967